=== PATIENT | female | born 1985 | race Caucasian/White ===

== ENCOUNTER 2016-04-22 10:27 | Emergency (ER) | payer OTHER ==
[2016-04-22] MEDS ORDERED: SODIUM CHLORIDE 0.9% 1,000 ML ONE (12:03)
== END 2016-04-22 13:36 | disposition home or self-care (01) ==
LOC: ER 10:27 → EEVIPCON 10:27 → ER 13:36
DX: O26.892 Other specified pregnancy related conditions, second trimester (principal); R19.7 Diarrhea, unspecified; Z3A.22 22 weeks gestation of pregnancy
CPT/HCPCS: 36415; 80053; 81001; 83690; 84702; 85025; 87045; 87046; 87077; 87088; 87186; 87449; 87493; 87899; 96360